=== PATIENT | male | born 1940 | race African-American/Black ===

== ENCOUNTER 2016-06-01 15:45 | Outpatient (RCR) | payer OTHER | END 2016-06-07 | disposition home or self-care (01) | LOC: PTY 15:45 | DX: M48.06 Spinal stenosis, lumbar region (principal); M51.9 Unspecified thoracic, thoracolumbar and lumbosacral intervertebral disc disorder ==

== ENCOUNTER 2016-06-14 15:50 | Outpatient (RCR) | payer OTHER | END 2016-07-08 | disposition home or self-care (01) | LOC: PTY 15:50 | DX: M48.06 Spinal stenosis, lumbar region (principal); M51.9 Unspecified thoracic, thoracolumbar and lumbosacral intervertebral disc disorder ==